=== PATIENT | female | born 1985 | race Caucasian/White ===

== ENCOUNTER → 2020-11-26 | Outpatient (CLI) | payer OTHER ==
[~2020-11-26] MED LIST: AZO STANDARD95 MG PO; IBUPROFEN600 MG PO; LAMICTAL100 MG PO; MELATONIN5 M2 PO; NAPROSYN500 MG PO; OMNICEF 300 MG300 MG PO; ZANTAC 150 MG150 MG PO
[2020-11-26 12:54] LABS: HEMOGLOBIN 15.7 gm/dl (12.3-15.3); RED BLOOD COUNT 4.96 M/UL (4.00-5.10); WHITE BLOOD COUNT 9.5 K/UL (4.5-11.0)
[2020-11-26 13:15] LABS: BUN/CREATININE RATIO 12 (0-10)
[2020-11-27 12:13] LABS: THYROXINE (T4) 9.3 ug/dL (4.5-12.0)
== END ==
LOC: LAB 11:58
PROVIDERS: Nurse Practitioner
DX: G40.909 Epilepsy, unspecified, not intractable, without status epilepticus (principal); R53.83 Other fatigue; K59.00 Constipation, unspecified; F41.9 Anxiety disorder, unspecified
CPT/HCPCS: 36415; 80053; 80061; 84436; 84443; 84480; 85025

== ENCOUNTER 2021-03-08 14:45 | Emergency (ER) | payer OTHER ==
[2021-03-08 15:29] LABS: HEMOGLOBIN 15.4 gm/dl (12.3-15.3); RED BLOOD COUNT 4.86 M/UL (4.00-5.10); WHITE BLOOD COUNT 9.1 K/UL (4.5-11.0)
[2021-03-08 16:32] LABS: BUN/CREATININE RATIO 11 (0-10)
== END 2021-03-08 18:05 | disposition home or self-care (01) ==
LOC: ER1 14:45
PROVIDERS: Emergency Medicine
DX: R56.9 Unspecified convulsions (principal); F17.200 Nicotine dependence, unspecified, uncomplicated; Z20.822 Contact with and (suspected) exposure to COVID-19
CPT/HCPCS: 0240U; 70450; 71045; 80053; 80307; 81001; 83605; 83690; 83735; 84100; 84439; 84443; 85025; 85610; 85730; 93005; 96374; 99285; G0480; J1953

== ENCOUNTER 2021-08-13 16:45 | Emergency (ER) | payer OTHER | END 2021-08-13 17:10 | disposition home or self-care (01) | LOC: ER1 16:45 | DX: G40.909 Epilepsy, unspecified, not intractable, without status epilepticus (principal) | CPT/HCPCS: 99284 ==